=== PATIENT | female | born 1950 | race American Indian/Alaskan Native ===

== ENCOUNTER 2017-12-23 11:03 | Outpatient (CLI) | payer MEDICARE ==
--- NOTE | 2017-12-23 20:23 | XRay Report ---
FINAL REPORT PROCEDURE: XR HIP 2-3V LT TECHNIQUE: LEFT hip radiographs, 2 views each, including AP view of the pelvis. HISTORY: HIP PAIN COMPARISON: No prior studies are available for comparison. FINDINGS: Fracture (s) and/or Dislocation(s): None . Joint space(s): Normal. Soft tissues: Normal. Bone mineralization: Normal. Foreign bodies: None. IMPRESSION: Normal Examination.
--- NOTE | 2017-12-23 20:25 | XRay Report ---
FINAL REPORT PROCEDURE: XR SPINE LUMBOSACRAL 4+V TECHNIQUE: Lumbar spine radiographs, including AP, lateral, oblique, and lumbosacral spot views. HISTORY: LOW BACK PAIN COMPARISON: No prior studies are available for comparison. FINDINGS: Alignment: Normal. Vertebral body heights/Disk spaces: Disc space narrowing with spurring at L4-5. Mild spurring at L3-4 Fracture(s): None. Facets: Normal. Bone mineralization: Normal. IMPRESSION: Degenerative change. No fracture seen.
== END 2017-12-23 11:04 | disposition home or self-care (01) ==
LOC: XRAY 11:03
PROVIDERS: ATTEND Family Medicine Adult Medicine
DX: M47.896 Other spondylosis, lumbar region (principal); M25.552 Pain in left hip
CPT/HCPCS: 72110